=== PATIENT | female | born 1995 | race Two or more races ===

== ENCOUNTER 2024-01-29 01:48 | Emergency (ER) | payer SELFPAY ==
[~2024-01-29] VITALS: Ht 152.4 cm; Wt 49.1 kg
[2024-01-29 06:56] VITALS: BP 130/95; PULSE 90; RESP 18; TEMP 98
== END 2024-01-29 07:02 | disposition home or self-care (01) ==
LOC: EMS 01:48
CPT/HCPCS: 99281; Z7502